=== PATIENT | female | born 1965 | race Two or more races ===

== ENCOUNTER 2021-06-28 08:58 | Outpatient (CLI) | payer OTHER ==
[~2021-06-28 08:58] MED LIST: TYLENOL-CODEINE1 TAB PO
== END 2021-06-28 09:15 | disposition home or self-care (01) ==
LOC: TOM 08:58
PROVIDERS: ATTEND Internal Medicine Pulmonary Disease
DX: R06.02 Shortness of breath (principal); J98.11 Atelectasis; Z72.0 Tobacco use

== ENCOUNTER 2022-07-31 18:53 | Emergency (ER) | payer OTHER ==
[~2022-07-31] VITALS: Ht 167.6 cm; Wt 77.1 kg
[2022-07-31] MEDS ORDERED: ZITHROMAX500 MG PO (19:50)
[2022-07-31] MEDS ORDERED: FLONASE ALLERG9.9 ML NASAL (19:51)
== END 2022-07-31 20:05 | disposition home or self-care (01) ==
LOC: ER 18:53
DX: U07.1 COVID-19 (principal)